=== PATIENT | male | born 1990 | race African-American/Black ===

== ENCOUNTER 2019-11-16 06:16 | Emergency (ER) | payer OTHER ==
[~2019-11-16] VITALS: Ht 188 cm; Wt 86.2 kg
[2019-11-16] MEDS ORDERED: NAPROSYN500 MG PO (07:28)
[2019-11-16 07:54] VITALS: BP 136/80
== END 2019-11-16 07:54 | disposition home or self-care (01) ==
LOC: ER 06:16
DX: M25.511 Pain in right shoulder (principal)

== ENCOUNTER 2020-01-24 18:59 | Emergency (ER) | payer OTHER ==
[~2020-01-24] VITALS: Ht 188 cm; Wt 86.2 kg
[~2020-01-24 18:59] MED LIST: NAPROSYN500 MG PO
[2020-01-24] MEDS ORDERED: FLEXERIL PO (21:34)
[2020-01-24 21:43] VITALS: BP 100/76
== END 2020-01-24 21:44 | disposition home or self-care (01) ==
LOC: ER 18:59
DX: S13.4XXA Sprain of ligaments of cervical spine, initial encounter (principal); S80.02XA Contusion of left knee, initial encounter; M25.511 Pain in right shoulder; M54.9 Dorsalgia, unspecified; Z98.890 Other specified postprocedural states; V89.2XXA Person injured in unspecified motor-vehicle accident, traffic, initial encounter; Y93.89 Activity, other specified; Y92.488 Other paved roadways as the place of occurrence of the external cause; Y99.8 Other external cause status